=== PATIENT | female | born 2000 | race Caucasian/White ===

== ENCOUNTER 2021-04-05 18:34 | Emergency (ER) | payer BC, SELFPAY ==
--- NOTE | ~2021-04-05 | CT_ITS ---
EXAMINATION: CT brain wo con INDICATION: Headache, seizure COMPARISON: None TECHNIQUE: Standard unenhanced head CT. The dose-length product (DLP) was 605.33 mGy-cm. The mA was a djusted according to patient size. Iterative reconstruction technique was employed. FINDINGS: There is no intracranial hemorrhage, acute infarction, or abnormal mass lesion. The ventric les are normal. There is no abnormal mass effect or midline shift. The huitron-white matter differentiat ion is normal. The basal cisterns are patent. The orbits are normal. The paranasal sinuses, mastoids and calvarium are normal. IMPRESSION: 1. No acute intracranial abnormality. Reviewed, dictated and finalized at location [facility]
[2021-04-05 18:38] VITALS: BP 143/81; PULSE 97; RESP 18; O2SAT 100
--- NOTE | 2021-04-05 19:19 | ED.GENADULT ---
HPI - General Adult General Chief complaint: Seizure Stated complaint: Seizures Time Seen by Provider: 04/05/21 19:07 History of Present Illness HPI narrative: Patient is a 20-year-old female that presents the emergency department with chief complaint of seizures. Patient reports she has been seen at [place] twice after she has had episodes of seizures. The patient states that she will be doing something start staring off become unresponsive start shaking and then realized that she is shaking the patient also reports that she has not had any bowel or bladder dysfunction reports that she has had headaches with this and that the 2 episodes where she was seen at [place] 1 they did x-rays of her knee after she fell and the other when they treated her for headache the patient also reports that she is a type II diabetic and her blood sugars have been running on the lower side this reports that they have been running in the 70's. The patient states she normally runs in the 200s the patient also reports because of the headaches she has been unable to eat or drink much Related Data Allergies Allergy/AdvReac Type Severity Reaction Status Date / Time No Known Allergies Allergy Unverified 04/05/21 19:17 Review of Systems Review of Systems: A 10 system review of systems was completed on the patient and is negative except for what is stated in the HPI. Nursing and ancillary documentation was reviewed. Exam Narrative: GENERAL: Well-appearing, well-nourished, and in no acute distress. HEAD: Normocephalic, atraumatic. EYES: PERRLA and EOMI. ENT: Nares clear, no rhinorrhea or epistaxis. Mucous membranes moist. NECK: Supple. CHEST: Clear to auscultation. No respiratory distress. HEART: Regular rate and rhythm. No murmur heard. Normal peripheral pulses. ABDOMEN: Soft, nontender, nondistended, normal active bowel sounds. EXTREMITIES: Normal range of motion. No edema. SKIN: Warm, dry, no rash. NEURO: No focal deficits. Alert and oriented x3. PSYCH: Normal mood and affect. Course Vital Signs Vital signs: Vital Signs Pulse Rate 97 04/05/21 18:38 Respiratory Rate 18 04/05/21 18:38 Blood Pressure 143/81 H 04/05/21 18:38 Pulse Oximetry 100 04/05/21 18:38 Pulse Rate 97 04/05/21 18:38 Respiratory Rate 18 04/05/21 18:38 Blood Pressure 143/81 H 04/05/21 18:38 Pulse Oximetry 100 04/05/21 18:38 Medical Decision Making Vital Signs Vital Signs: Vital Signs Pulse Rate 97 04/05/21 18:38 Respiratory Rate 18 04/05/21 18:38 Blood Pressure 143/81 H 04/05/21 18:38 Pulse Oximetry 100 04/05/21 18:38 Pulse Rate 97 04/05/21 18:38 Respiratory Rate 18 04/05/21 18:38 Blood Pressure 143/81 H 04/05/21 18:38 Pulse Oximetry 100 04/05/21 18:38 Lab Data Result diagrams: 04/05/21 19:56 04/05/21 19:56 Labs: Lab Results 04/05/21 04/05/21 04/05/21 Range/Units 19:40 19:56 19:56 WBC 14.2 H (4.5-10.0) K/mm3 RBC 5.66 H (4.2-5.4) M/mm3 Hgb 14.7 (12.0-15.0) g/dL Hct 44.3 (37.0-47.0) % MCV 78.3 L (80-100) fl MCH 26.0 (26-34) pg MCHC 33.2 (32-36) g/dl RDW 14.0 (11.5-14.5) % Plt Count 392 H (150-375) k/mm3 MPV 9.5 (7.4-10.4) fl Immature Gran % (Auto) 0.3 (0-0.5) % Neut % (Auto) 74.9 H (45.5-73.1) % Lymph % (Auto) 19.3 (18.3-44.2) % [place] % (Auto) 4.4 (2.6-8.5) % Eos % (Auto) 0.7 (0-4.4) % Baso % (Auto) 0.4 (0.2-1.2) % Lymph # (Auto) 2.75 (0.9-3.2) K/mm3 [place] # (Auto) 0.6 (0.1-0.6) K/mm3 Eos # (Auto) 0.1 (0-0.3) K/mm3 Baso # (Auto) 0.1 (0.0-0.1) K/mm3 Abs Immat Gran (auto) 0.04 H (0.00-0.031) K/mm3 Absolute Neuts (auto) 10.6 H (1.3-6.7) K/mm3 Absolute Nucleated RBC 0.0 (0.0-0.012) K/mm3 Nucleated RBC % 0.0 (0.0-0.2) % Sodium (137-145) mmol/L Potassium (3.4-5.0) mmol/L Chloride (98-107) mmol/L Carbon Dioxide (22-30) mmol/L Anion Gap
--- NOTE | 2021-04-05 19:32 | PC.NURSE ---
Pt to imaging at this time.
[2021-04-05 19:45] LABS: Glucose Point of Care 275 mg/dl (65-105)
[2021-04-05] MEDS: PROCHLORPERAZINE EDISYLATE 10 MG/2 ML VIAL IV PUSH (19:57)
[2021-04-05] MEDS: diphenhydrAMINE HCl INJ 50 MG/ML VIAL IV PUSH (20:02)
[2021-04-05] MEDS: SODIUM CHLORIDE 0.9% IV 1,000 ML 999 ML IV CONT (20:04)
[2021-04-05] MEDS: KETOROLAC 30 MG/ML VIAL (*BKC) IV PUSH (20:06)
[2021-04-05 20:16] LABS: Basophils Absolute Auto 0.1 K/mm3 (0.0-0.1); Basophils Percent Auto 0.4 % (0.2-1.2); Eosinophils Absolute Auto 0.1 K/mm3 (0-0.3); Eosinophils Percent Auto 0.7 % (0-4.4); Hematocrit 44.3 % (37.0-47.0); Hemoglobin 14.7 g/dL (12.0-15.0); Immature Granulocyte Absolute 0.04 K/mm3 (0.00-0.031); Immature Granulocyte Percent A 0.3 % (0-0.5); Lymphocytes Absolute Auto 2.75 K/mm3 (0.9-3.2); Lymphocytes Percent Auto 19.3 % (18.3-44.2); Mean Corpuscular HGB Conc 33.2 g/dl (32-36); Mean Corpuscular Volume 78.3 fl (80-100); Mean Platelet Volume 9.5 fl (7.4-10.4); Monocytes Absolute Auto 0.6 K/mm3 (0.1-0.6); Monocytes Percent Auto 4.4 % (2.6-8.5); Neutrophils Absolute Auto 10.6 K/mm3 (1.3-6.7); Neutrophils Percent Auto 74.9 % (45.5-73.1); Platelet Count Result 392 k/mm3 (150-375); Red Blood Count 5.66 M/mm3 (4.2-5.4); White Blood Count 14.2 K/mm3 (4.5-10.0)
[2021-04-05 20:22] LABS: Add Urine Microscopic? YES; Appearance Urine Clear (Clear); Bilirubin Urine Negative (Negative); Blood Urine Negative (Negative); Color Urine Yellow (Yellow); Glucose Urine UA 3+ mg/dL (Negative); Ketones Urine Negative (Negative); Lactic Acid Reflex 1.7 mmol/L (0.7-2.1); Leukocyte Esterase Ur Negative LEU/UL (Negative); Mucus Urine Heavy /lpf; Nitrate Urine Negative (Negative); Protein Urine Negative (Negative); RBC Urine 0-2 /hpf (0-2); Specific Grav Ur 1.022 (1.001-1.035); Squamous Epithelial Cell Urine Few /hpf (Few); Urobilinogen Urine Negative mg/dL (<2.0); WBC Urine 0-3 /hpf
[2021-04-05 20:23] LABS: Alanine Aminotransferase 37 U/L (4-35); Albumin Level 4.3 g/dL (3.5-5.1); Alkaline Phosphatase 106 U/L (38-126); Anion Gap 10 mmol/L (8-16); Aspartate Amino Transferase 34 U/L (14-36); Bilirubin,Total 0.4 mg/dL (0.2-1.3); Blood Urea Nitrogen 9 mg/dL (7-17); Calcium 9.2 mg/dL (8.4-10.2); Carbon Dioxide 26 mmol/L (22-30); Chloride 102 mmol/L (98-107); Estimated CRCL calculation 196 ml/min; Estimated Glomerular Filt Rate > 60; Glucose 273 mg/dL (65-110); Magnesium 1.9 mg/dL (1.6-2.3); Sodium 138 mmol/L (137-145)
[2021-04-05 20:56] VITALS: BP 133/86; PULSE 78; RESP 16; O2SAT 100
== END 2021-04-05 20:59 | disposition home or self-care (01) ==
PROVIDERS: Emergency Provider Emergency Medicine
DX: R51.9 Headache, unspecified (principal); E11.9 Type 2 diabetes mellitus without complications
CPT/HCPCS: 36415; 70450; 80053; 81001; 81025; 82948; 83605; 83735; 85025; 96361; 96374; 96375; 99284; J0780; J1200; J1885; J7030

== ENCOUNTER 2021-07-17 10:36 | Outpatient (CLI) | payer BC, SELFPAY ==
--- NOTE | 2021-07-20 10:47 | WPDNEUROLOGY ---
Neurology EEG Report General Information Date of Study: 07/17/21 TEST eeg DIAGNOSIS seizures CONDITION OF RECORDING awake drowsy and sleep EEG NUMBER [id number] CLINICAL HISTORY patient reports she has migraines, dizziness and then followed by grand mal seizures. History of febrile seizures and also family history of seizures EEG DESCRIPTION basic resting occipital frequency consists of large amount of well-organized medium voltage 8 to 10 hertz per 2nd alpha admixed with low-voltage 15 to 18 hertz per 2nd beta. Low-voltage beta activity seen diffusely during drowsiness admixed with 6 to 7 hertz per 2nd theta activity. Bilateral symmetrical sleep activity seen during sleep photic stimulation produced normal drive hyperventilation not done. Non paroxysmal nonfocal nonlateralizing IMPRESSION no significant abnormalities noted
== END 2021-07-17 10:37 | disposition home or self-care (01) ==
LOC: ANHNEURO 10:43
PROVIDERS: Visit Provider Psychiatry & Neurology Neurology
DX: R56.9 Unspecified convulsions (principal)
CPT/HCPCS: 95816